=== PATIENT | male | born 1955 | race Caucasian/White ===

== ENCOUNTER 2019-04-13 15:55 | Observation (INO) | payer OTHER ==
[~2019-04-13] VITALS: Ht 170.2 cm; Wt 87.4 kg
--- NOTE | 2019-04-13 17:00 | ERD ---
ER Documentation Chief Complaint Chief Complaint c/o chest pain non radiating and uneasiness, pt. states "im having a panic HPI This is a 63-year-old male with a history of high blood pressure diabetes, and multiple underlying psychiatric issues who presents to the emergency room for evaluation of chest pain. The patient denies any exertional component to chest pain and localizes it to the center of his chest and states that it is a pressure-like sensation with no radiation. The patient denies any shortness of breath, nausea, vomiting, diaphoresis. The patient states that he thinks he is having a panic attack and does have pain similar to this with a previous panic attacks. ROS All systems reviewed and are negative except as per history of present illness. Medications Home Meds Reported Medications Tamsulosin Hcl* (Flomax*) 0.4 Mg Cap.er.24h, 0.4 MG PO DAILY, CAP 04/13/19 Clonidine Hcl* (Clonidine Hcl*) 0.1 Mg Tab, 0.1 MG PO DAILY PRN for BLOOD PRESSURE SUPPORT, TAB 04/13/19 Albuterol Sulfate* (Proair HFA*) 8.5 Gm Hfa.aer.ad, 2 PUFF INH Q4H PRN for WHEEZING AND SOB, #1 INHALER 04/13/19 [place]um[place]-3 Acid Ethyl Esters (Lovaza) 1 Gm Capsule, 2 GM PO BID, CAP 04/13/19 Nifedipine* (Nifedipine ER*) 30 Mg Tablet.sa, 30 MG PO DAILY, TAB.SA 04/13/19 Yrumth-Rnaeabpi-Clzaper* (Alphonso CACERES* 36,000) 36,000 L-114,000-180,000 Unit Capsule.dr, 1 CAP PO WITH MEALS, CAP 04/13/19 Sitagliptin* (Januvia*) 100 Mg Tablet, 100 MG PO DAILY, #30 TAB 04/13/19 Metoclopramide Hcl* (Metoclopramide Hcl*) 5 Mg Tablet, 5 MG PO Q6H PRN for NAUS EA AND OR VOMITING, TAB 04/13/19 Glipizide XL* (Glipizide XL*) 5 Mg Tabsr, 10 MG PO DAILY, TAB 04/13/19 Empagliflozin (Jardiance) 10 Mg Tablet, 10 MG PO DAILY, TAB 04/13/19 Insulin Glargine,Hum.rec.anlog (Basaglar Kwikpen U-100) 100 Unit/1 Ml Insuln.pen, 0 SC QHS, EA PT NO SURE HOW MANY UNITS 04/13/19 Dutasteride* (Avodart*) 0.5 Mg Capsule, 0.5 MG PO DAILY, CAP 04/13/19 Mirtazapine* (Mirtazapine*) 15 Mg Tablet, 15 MG PO HS, TAB 04/13/19 Fenofibrate, Micronized* (Fenofibrate*) 160 Mg Tablet, 160 MG PO DAILY, TAB 04/13/19 Omeprazole* (Omeprazole*) 40 Mg Capsule.dr, 40 MG PO DAILY, #30 CAP 04/13/19 Gabapentin* (Gabapentin*) 300 Mg Capsule, 300 MG PO BID, #60 CAP 04/13/19 Benazepril-Hydrochlorothiazide (Benazepril-Hydrochlorothiazide) 10-12.5 Mg Tablet, 1 TAB PO DAILY, #30 TAB 04/13/19 Aspirin (Low Dose Aspirin) 81 Mg Tablet.dr, 81 MG PO DAILY, #30 TAB 04/13/19 Metoprolol Succinate* (Toprol XL*) 50 Mg Tab.er.24h, 50 MG PO DAILY, #30 TAB 04/13/19 Rosuvastatin Calcium* (Crestor*) 10 Mg Tablet, 10 MG PO QHS, #30 TAB 04/13/19 Lorazepam* (Lorazepam*) 0.5 Mg Tablet, 0.5 MG PO DAILY PRN for ANXIETY, TAB 04/13/19 Allergies Allergies: Coded Allergies: No Known Allergy (Unverified , 04/13/19) PMhx/Soc Medical and Surgical Hx: pt denies Surgical Hx Hx Cardiac Disorders: Yes (htn, hld) Hx Psychiatric Problems: Yes (depression, schizo, panic attacks) Hx Miscellaneous Medical Probl: No Hx Alcohol Use: No Hx Substance Use: Yes Hx Tobacco Use: Yes Smoking Status: Current every day smoker Physical Exam Vitals Vital Signs Date Temp Pulse Resp B/P (MAP) Pulse Ox O2 O2 Flow FiO2 Time Delivery Rate 04/13/19 69 14 169/91 96 Room Air 17:54 (117) 04/13/19 99.1 87 20 148/79 99 16:09 (102) Physical Exam INITIAL VITAL SIGNS: Reviewed by me GENERAL: The patient is well developed and appropriate for usual state of health in no apparent distress HEENT: Pupils equal, round, and reactive to light. EOMI. There is no scleral icterus. NECK: C-spine is soft and supple, there is no meningismus. There is no cervical lymphadenopathy. LUNGS: Clear to auscultation bilaterally. There are no rales, wheezes or rhonchi. HEART: Regular rate and rhythm, no murmurs, clicks, rubs or gallops. ABDOMEN: Soft, non-tender, non-distended. There are bowel sounds in all four quadrants. No rebound or guarding. EXTREMITIES: There is no peripheral cyanosis or edema. No focal swelling or erythema. NEUROLOGICAL: The patient moves all four extremities with 5/5 strength. Cranial nerves II - XII are intact. Normal gait. Alert and oriented SKIN: There is no apparent rash or petechiae. HEME/LYMPHATIC: There is no evidence of excessive bruising or lymphedema. PSYCHIATRIC: The patient does has an anxious affect Result Diagram: 04/13/19 1620 04/13/19 1620 Results 24 hrs Laboratory Tests Test 04/13/19 16:20 White Blood Count 6.3 10^3/ul Red Blood Count 3.69 10^6/ul Hemoglobin 11.2 g/dl Hematocrit 33.0 % Mean Corpuscular Volume 89.4 fl Mean Corpuscular Hemoglobin 30.4 pg Mean Corpuscular Hemoglobin Concent 33.9 g/dl Red Cell Distribution Width 12.0 % Platelet Count 230 10^3/UL Mean Platelet Volume 9.5 fl Immature Granulocytes % 0.300 % Neutrophils % 70.7 % Lymphocytes % 21.0 % Monocytes % 7.5 % Eosinophils % 0.0 % Basophils % 0.5 % Nucleated Red Blood Cells % 0.0 /100WBC Immature Granulocytes # 0.020 10^3/ul Neutrophils # 4.5 10^3/ul Lymphocytes # 1.3 10^3/ul Monocytes # 0.5 10^3/ul Eosinophils # 0.0 10^3/ul Basophils # 0.0 10^3/ul Nucleated Red Blood Cells # 0.0 10^3/ul Sodium Level 130 mmol/L Potassium Level 3.9 mmol/L Chloride Level 96 mmol/L Carbon Dioxide Level 25 mmol/L Anion Gap 9 Blood Urea Nitrogen 10 mg/dl Creatinine 0.75 mg/dl Est Glomerular Filtrat Rate mL/min > 60 mL/min Glucose Level 247 mg/dl Calcium Level 9.2 mg/dl Troponin I < 0.012 ng/ml Current Medications Medications Dose Sig/Matthew Start Time Status Last (Trade) Ordered Route PRN Stop Time Admin Dose Reason Admin Lorazepam 1 mg ONCE ONCE 04/13/19 DC 04/13/19 (Ativan) PO 18:00 17:47 04/13/19 18:01 Aspirin 324 mg ONCE ONCE 04/13/19 DC 04/13/19 (Aspirin) PO 18:00 17:45 04/13/19 18:01 Ondansetron 4 mg ER BRIDGE 04/13/19 HCl (Zofran PRN IV 18:00 Inj) NAUSEA/VOMITI 04/14/19 17:59 NG 650 mg ER BRIDGE 04/13/19 Acetaminophen PRN PO 18:00 (Tylenol .MILD PAIN 04/14/19 17:59 Tab) 1-3 OR TEMP Albuterol 2 puff Q4H PRN 04/13/19 UNV (Ventolin INH WHEEZING 18:00 Hfa) AND SOB Aspirin 81 mg DAILY PO 04/14/19 UNV (Halfprin) 09:00 Clonidine 0.1 mg DAILY PRN 04/13/19 UNV (Catapres) PO BLOOD 18:00 PRESSURE SUPPORT Dutasteride 0.5 mg DAILY PO 04/14/19 UNV (Avodart) 09:00 10 mg DAILY PO 04/14/19 UNV Empaglifozin 09:00 (Jardiance) Gabapentin 300 mg BID PO 04/13/19 UNV (Neurontin) 21:00 Glipizide 10 mg DAILY PO 04/14/19 UNV (Glucotrol 09:00 Xl) Insulin 18 unit QHS SC 04/13/19 UNV Glargine 21:00 (Lantus) Lorazepam 0.5 mg DAILY PRN 04/13/19 UNV (Ativan) PO ANXIETY 18:00 5 mg Q6H PRN 04/13/19 UNV Metoclopramid PO NAUSEA 18:00 e HCl AND/OR (Reglan) VOMITING Metoprolol 50 mg DAILY PO 04/13/19 UNV Succinate 18:00 (Toprol Xl) Mirtazapine 15 mg HS PO 04/13/19 UNV (Remeron) 21:00 Nifedipine 30 mg DAILY PO 04/14/19 UNV (Procardia 09:00 Xl) Tamsulosin 0.4 mg DAILY PO 04/14/19 UNV HCl 09:00 (Flomax) 1 tab DAILY PO 04/14/19 UNV Miscellaneous 09:00 Information 160 mg DAILY PO 04/14/19 UNV Miscellaneous 09:00 Information 1 cap WITH MEALS 04/13/19 UNV Miscellaneous PO 18:00 Information 2 gm BID PO 04/13/19 UNV Miscellaneous 21:00 Information 10 mg QHS PO 04/13/19 UNV Miscellaneous 21:00 Information 100 mg DAILY PO 04/14/19 UNV Miscellaneous 09:00 Information Diagnostic 1 ea AC MEALS AND 04/13/19 UNV Test (Pha) BEDTIME XX 21:00 (Accu-Chek) Procedures/MDM EKG: Rate/Rhythm: [Normal Sinus Rhythm] QRS, ST, T-waves: [No changes consistent w/ acute ischemia] Impression: [No evidence of ischemia or arrhythmia] Chest X-ray 1V Interpreted by me: Soft Tissue: No acute abnormalities Bones: No acute abnormalities Mediastinum/Cardiac Silhouette/Lungs: [No acute abnormalities] This 63-year-old male presents to the ER for evaluation of chest pain. On my evaluation the patient did appear slightly anxious. He does state he has a history of high blood pressure. The patient was given Ativan and aspirin. On reevaluation the patient still states that he is having some chest pain. His EKG was nonischemic, first troponin is negative, chest x-ray is clear however given his age and risk factors the patient will benefit from inpatient hospitalization for serial troponins and possible cardiology consult. The patient will be admitted to [facility] physician Dr. Gray who is comfortable with her plan of care Departure Diagnosis: Primary Impression: Chest pain Condition: FLEX Kaiser DO Apr 13, 2019 17:00
[2019-04-13] MEDS ORDERED: LORA0.5T PO (17:11)
[2019-04-13] MEDS ORDERED: RSV10T PO (17:14)
[2019-04-13] MEDS ORDERED: METO-319 PO (17:14)
[2019-04-13] MEDS ORDERED: ASPI81TA52 PO (17:15)
[2019-04-13] MEDS ORDERED: OMEP40CA6 PO (17:21)
[2019-04-13] MEDS ORDERED: BENA1TAB12 PO (17:21)
[2019-04-13] MEDS ORDERED: GABA300C16 PO (17:21)
[2019-04-13] MEDS ORDERED: FENO160T13 PO (17:22)
[2019-04-13] MEDS ORDERED: MIRT15TA5 PO (17:22)
[2019-04-13] MEDS ORDERED: DUTA0.5C PO (17:23)
[2019-04-13] MEDS ORDERED: INSU100I33 SC (17:24)
[2019-04-13] MEDS ORDERED: EMPA10TA PO (17:24)
[2019-04-13] MEDS ORDERED: METO5TAB2 PO (17:25)
[2019-04-13] MEDS ORDERED: GLIP-160 PO (17:25)
[2019-04-13] MEDS ORDERED: SITA100T11 PO (17:26)
[2019-04-13] MEDS ORDERED: NIFE30TA23 PO (17:26)
[2019-04-13] MEDS ORDERED: LIPA1CAP45 PO (17:26)
[2019-04-13] MEDS ORDERED: ALBU8.5H8 INH (17:27)
[2019-04-13] MEDS ORDERED: OMEG1CAP2 PO (17:27)
[2019-04-13] MEDS ORDERED: CLON-379 PO (17:52)
[2019-04-13] MEDS ORDERED: TAMS-14 PO (17:53)
[2019-04-13] MEDS ORDERED: ONDANSETRON 4 MG INJ IV PRN (18:00)
[2019-04-13] MEDS ORDERED: ASPIRIN 81 MG TAB PO ONE (18:00)
[2019-04-13] MEDS ORDERED: ALBUTEROL HFA 8 GM INHALER INH PRN (18:00)
[2019-04-13] MEDS ORDERED: ACETAMINOPHEN 325 MG TAB PO PRN ×2 (18:00→18:30)
[2019-04-13] MEDS ORDERED: LORAZEPAM 1 MG TAB PO ONE (18:00)
[2019-04-13] MEDS ORDERED: METOCLOPRAMIDE 5 MG TAB PO PRN (18:00)
[2019-04-13] MEDS ORDERED: LORAZEPAM 0.5 MG TAB PO PRN (18:00)
[2019-04-13] MEDS ORDERED: ONDANSETRON 4 MG TAB PO PRN (18:30)
[2019-04-13] MEDS ORDERED: DEXTROSE 50% 50 ML SYRINGE IV PRN ×2 (18:30)
[2019-04-13] MEDS ORDERED: GLUCAGON 1 MG INJ IM PRN (18:30)
[2019-04-13] MEDS ORDERED: DOCUSATE SODIUM 100 MG CAP PO PRN (18:30)
[2019-04-13] MEDS ORDERED: GLUCOSE GEL 15 GRAM TUBE BUCCAL PRN (18:30)
[2019-04-13] MEDS ORDERED: GLUCOSE GEL 15 GRAM TUBE PO PRN ×2 (18:30)
[2019-04-13] MEDS ORDERED: NACL 0.9% 3 ML SYG IV SCH (18:30)
[2019-04-13 20:44] VITALS: BP 171/78; PULSE 61; RESP 22
[2019-04-13] MEDS ORDERED: MIRTAZAPINE 15 MG TAB PO SCH (21:00)
[2019-04-13] MEDS: ACCU-CHEK XX SCH (21:00)
[2019-04-13] MEDS ORDERED: ATORVASTATIN 40 MG TAB PO SCH (21:00)
[2019-04-13] MEDS ORDERED: INSULIN GLARGINE [LANTus] (100 UNITS/ML) SYG SC SCH (21:00)
[2019-04-13] MEDS ORDERED: [UNRECOGNIZED DRUG - OTHER] XX SCH (21:30)
[2019-04-13 22:00] VITALS: Ht 170.2 cm; Wt 87.4 kg
[2019-04-13] MEDS: FAMOTIDINE 20 MG TAB PO SCH (22:17)
[2019-04-13] MEDS: GABAPENTIN 300 MG CAP PO SCH (22:18)
[2019-04-13] MEDS: FISH OIL 1,000 MG CAP PO SCH (22:18)
[2019-04-13] MEDS: METOPROLOL (XL) 50 MG TAB PO SCH (22:32)
[2019-04-13] MEDS: ENOXAPARIN 40 MG/0.4 ML SYG SC SCH (22:37)
[2019-04-13] MEDS: CREON (12k-38k-60k) 1 CAP PO SCH (23:24)
[2019-04-14 00:11] VITALS: BP 146/62; PULSE 60; RESP 19
[2019-04-14 04:00] VITALS: BP 100/53; PULSE 50; RESP 19
[2019-04-14 07:13] VITALS: BP 112/62; PULSE 53; RESP 18
[2019-04-14] MEDS ORDERED: INSULIN GLARGINE [LANTus] (100 UNITS/ML) SYG SC SCH ×2 (07:52→21:00)
[2019-04-14] MEDS: ACCU-CHEK XX SCH ×2 (07:56→11:20)
[2019-04-14] MEDS: CREON (12k-38k-60k) 1 CAP PO SCH ×2 (08:09→11:50)
[2019-04-14] MEDS: GABAPENTIN 300 MG CAP PO SCH (08:10)
[2019-04-14] MEDS: FISH OIL 1,000 MG CAP PO SCH (08:10)
[2019-04-14] MEDS: FAMOTIDINE 20 MG TAB PO SCH (08:10)
[2019-04-14] MEDS: DUTASTERIDE 0.5 MG CAP PO SCH ×2 (08:10→08:30)
[2019-04-14] MEDS: METOPROLOL (XL) 50 MG TAB PO SCH (08:15)
[2019-04-14] MEDS: ENOXAPARIN 40 MG/0.4 ML SYG SC SCH (08:27)
--- NOTE | 2019-04-14 08:59 | PDOCDIS ---
Discharge Instructions CONDITION [id number] Patient Condition: [id number] Good HOME CARE INSTRUCTIONS: [id number] Diet Instructions: [id number] Activity Restrictions: [id number] No Restrictions FOLLOW UP/APPOINTMENTS Follow-up Plan pcp 1 week SAMEER MARTE MD Apr 14, 2019 08:59
[2019-04-14] MEDS ORDERED: NIFEdipine (XL) 30 MG TAB PO SCH (09:00)
[2019-04-14] MEDS ORDERED: TAMSULOSIN (SR) 0.4 MG CAP PO SCH (09:00)
[2019-04-14] MEDS ORDERED: HYDROCHLOROTHIAZIDE 12.5 MG CAP PO SCH (09:00)
[2019-04-14] MEDS ORDERED: FENOFIBRATE 145 MG TAB PO SCH (09:00)
[2019-04-14] MEDS ORDERED: BENAZEPRIL 10 MG TAB PO SCH (09:00)
[2019-04-14] MEDS ORDERED: EMPAGLIFLOZIN 10 MG TABLET PO SCH (09:00)
[2019-04-14] MEDS ORDERED: LINAGLIPTIN 5 MG TABLET PO SCH (09:00)
[2019-04-14] MEDS ORDERED: ASPIRIN (EC) 81 MG TAB PO SCH (09:00)
[2019-04-14] MEDS ORDERED: glipiZIDE (XL) 2.5 MG TAB PO SCH (09:00)
[2019-04-14] MEDS ORDERED: glipiZIDE (XL) 5 MG TAB PO SCH (09:00)
--- NOTE | 2019-04-14 11:47 | HP ---
DATE OF ADMISSION: 04/13/2019 CHIEF COMPLAINT: Chest pain. HISTORY OF PRESENT ILLNESS: A 63-year-old male with a history of hypertension, type 2 diabetes melli tus, hyperlipidemia, chronic smoking, and schizophrenia, presented to emergency room with complaint o f midsternal chest pain since the day prior to admission. The patient attributes the pain to severe anger. His symptoms lasted 2 to 3 hours. He denies shortness of breath. No nausea, vomiting or adrian phoresis. No exertional symptoms. The pain was nonradiating. The patient reports having had a christian lar type of pain in the past due to his episodes of panic attack. Initial evaluation in the emergency room was unremarkable. Serial troponins have been normal. There were no EKG changes. At the time of my visit, the patient had no complaints of chest pain or shortn ess of breath. PAST MEDICAL HISTORY: 1. Hypertension. 2. Hyperlipidemia. 3. Type 2 diabetes mellitus. 4. Schizophrenia. MEDICATIONS: 1. Flomax 0.4 mg daily. 2. Clonidine 0.1 mg daily. 3. Albuterol as needed. 4. Nifedipine 30 mg daily. 5. Januvia 100 mg daily. 6. Glipizide XL 5 mg daily. 7. Jardiance 10 mg daily. 8. Basaglar insulin daily. 9. Avodart 0.5 mg daily. 10. Mirtazapine 15 mg at bedtime. 11. Fenofibrate 160 mg daily. 12. Omeprazole 40 mg daily. 13. Gabapentin 300 mg b.i.d. 14. Benazepril hydrochlorothiazide 10/12.5 one tablet daily. 15. Aspirin 81 mg daily. 16. Toprol-XL 50 mg daily. 17. Crestor 10 mg daily. 18. Lorazepam as needed. ALLERGIES: THE PATIENT HAS NO KNOWN DRUG ALLERGIES. SOCIAL HISTORY: The patient lives at home. He suffers from depression and occasional panic attacks. He admits to smoking more than half a pack of cigarettes per day. PHYSICAL EXAMINATION: GENERAL: Well-developed, well-nourished male who is in no apparent distress. VITAL SIGNS: Stable. He is afebrile. HEENT: Extraocular muscles intact. Pupils are equal and reactive to light bilaterally. Sclerae are anicteric. Oropharynx is clear and moist. NECK: Supple, no JVD, no carotid bruits. LUNGS: Mild rhonchi. CARDIAC: Regular rate and rhythm. No murmurs, rubs or gallops. ABDOMEN: Soft, nontender, nondistended, normoactive bowel sounds. EXTREMITIES: No clubbing, cyanosis, or edema. NEUROLOGICAL: Grossly nonfocal. LABORATORY DATA: CBC was within normal limits. Basic metabolic panel was within normal limits. Hem oglobin A1c was 7.4. Serial troponins were less 0.012 x2. ASSESSMENT: 1. A 63-year-old male presenting with atypical chest pain. Despite the fact that the patient has mu ltiple cardiac risk factors, he had persistent pain for 3 hours on the day of admission. There were no associated symptoms. EKG is normal and serial troponins have been normal. 2. Hypertension. 3. Type 2 diabetes mellitus. 4. Hyperlipidemia. 5. Schizophrenia. 6. Chronic depression. 7. Benign prostatic hyperplasia. PLAN: 1. Place in tele observation. 2. Resume home medications. 3. A 2D echo. 4. Cardiology consultation was requested. Dictated By: SAMEER STRICKLAND/LARA Conf#: [id number] DID#: [id number] CC: SUZANNE PARKER MD;*EndCC*
[2019-04-14 12:02] VITALS: BP_SYST 118; BP_SYST 139; BP_DIAS 70; BP_DIAS 78; PULSE 62; PULSE 78; RESP 18
--- NOTE | 2019-04-14 12:08 | RADRPT ---
Echocardiogram Report Patient Name: ALEYDA FAIRBANKSPatient ID: [id number] : 1955 (63y 5m)Study Date: 04/14/2019 9:52:28 AM Gender: MAccession #: [id number] Tech: [facility] Location: [facility] Ref.Physician: SAMEER MARTE Height(Cm): BSA: Weight(Kg): Quality: AdequateOrder Physician: SAMEER MARTE Account #: Procedures: Echocardiographic Report: Transthoracic echocardiogram with complete 2D, M-Mode, and doppler examination. Indications: Evaluate Left Ventricular function. Measurements: 2D/M Mode Doppler Measurement Value Normal Range Measurement Value Normal Range LVIDd 2D 5.1 [ 4.2 - 5.8 ] cm AV Peak Maciej 1.4 [ 100.0 - 170.0 ] cm/sec LVIDs 2D 3.3 [ 2.5 - 4.0 ] cm AV Peak PG 8.0 [ 2.0 - 9.0 ] mmHg LVPWd 2D 1.0 [ 0.6 - 1.0 ] cm LVOT Peak Maciej 0.7 [ 70.0 - 110.0 ] cm/sec IVSd 2D 1.0 [ 0.6 - 1.0 ] cm LVOT Peak PG 2.0 [ 2.0 - 6.0 ] mmHg AoR Diam 2D 2.8 [ 2.6 - 3.4 ] cm MV E Peak Maciej 1.0 [ 60.0 - 130.0 ] cm/sec EDV 2D 123.0 [ 62.0 - 150.0 ] ml MV A Peak Maciej 0.8 [ 100.0 - 120.0 ] cm/sec ESV 2D 43.2 [ 21.0 - 61.0 ] ml MV E/A 1.3 [ 0.8 - 1.5 ] ratio EF 2D 64.9 [ 52.0 - 72.0 ] percent MV Decel Time 232 [ 104 - 258 ] msec LA Dimen 2D 4.1 [ 3.0 - 4.0 ] cm Lat E` Maciej 0.1 [ 10.0 - 15.0 ] cm/sec Lateral E/E` 13.9 [ 1.0 - 2.0 ] ratio Med E` Maciej 0.1 cm/sec MV E/A 1.3 [ 0.8 - 1.5 ] ratio TR Peak Maciej 2.3 [ 100.0 - 280.0 ] cm/sec TR Peak PG 22.0 mmHg RVSP 25.0 [ 10.0 - 36.0 ] mmHg Findings: Left Ventricle: Normal left ventricular systolic function. Normal left ventricular cavity size. Left ventricular wall thickness upper limits of normal. Ejection fraction is visually estimated at 65 %. Tissue Doppler/Mitral Doppler indices are within normal limits. Right Ventricle: Normal right ventricular size. Normal right ventricular systolic function. Left Atrium: There is mild enlargement of left atrium. Right Atrium: The right atrium is normal in size. Mitral Valve: Mild mitral leaflet calcification. Mild mitral annular calcification. Trace mitral regurgitation. Aortic Valve: No significant aortic stenosis or insufficiency. Aortic cusps appear mildly calcified. Tricuspid Valve: Normal appearance of the tricuspid valve. The estimated Peak RVSP is 25 mmHg. There is trace tricuspid regurgitation. Pericardium: Normal pericardium with no significant pericardial effusion. Aorta: Normal aortic root. IVC: Normal size and normal respiratory collapse consistent with normal right atrial pressure. Conclusions: Normal left ventricular systolic function. Normal left ventricular cavity size. Left ventricular wall thickness upper limits of normal. Normal right ventricular size. Normal right ventricular systolic function. No significant valvular stenosis or regurgitation seen. Normal pericardium with no significant pericardial effusion. Electronically Signed By: Reginald Almodovar 2019-04-14 12:08:18 PDT
[2019-04-14] MEDS ORDERED: LORAZEPAM 0.5 MG TAB PO ONE (12:30)
--- NOTE | 2019-04-14 13:22 | CONS ---
Assessment/Plan Assessment/Plan Hospital Course (Demo Recall) Chest pain Preserved left ventricular ejection fraction Hypertension Dyslipidemia Anxiety Tobacco use Patient with inconsistent history, initially telling me he has chest pain when he is anxious or nervous, then later points to his head and says the pain is here. He denies exertional chest pain or shortness of breath. Serial cardiac enzymes are negative, ECG with no significant ischemic ab normalities, echocardiogram with preserved left ventricular ejection fraction Patient with inconsistencies in history as mentioned previously, by the end of the exam, patient crying. In discussion with the nurse, he signed forms to leave AGAINST MEDICAL ADVICE prior to me coming to see him. His symptoms appear quite atypical for cardiac ischemia at the current time. Consultation Date/Type/Reason Admit Date/Time Apr 13, 2019 at 18:01 Type of Consult Cardiology Reason for Consultation Chest pain Date/Time of Note DATE: 04/14/19 TIME: 13:16 Hx of Present Illness This is a 63-year-old male with past medical history of hypertension, dyslipidemia, tobacco use who presents with multiple complaints. Initially, patient told me that when he gets nervous, or has bad thoughts, he gets symptoms of chest pain. No shortness of breath. He denies exertional chest pain or shortness of breath. He told me he had an episode yesterday where he had bad thoughts and "the nerves in my head were bothering me". This was headache and chest pain. His symptoms have resolved overnight. Today, he told me he feels anxious now and feels "the nerves in my head are talking to me and bothering me". He tells me he has -1 chest pain, when I further asked him, he points to his head telling me the pain is here. When I asked him if he has a headache, he says yes and then begins crying. 12 point review of systems was performed with all pertinent positives and negatives mentioned above and all else is negative Past Medical History Anxiety Medical History: high cholesterol, hypertension Home Meds Reported Medications Tamsulosin Hcl* (Flomax*) 0.4 Mg Cap.er.24h, 0.4 MG PO DAILY, CAP 04/13/19 Clonidine Hcl* (Clonidine Hcl*) 0.1 Mg Tab, 0.1 MG PO DAILY PRN for BLOOD PRESSURE SUPPORT, TAB 04/13/19 Albuterol Sulfate* (Proair HFA*) 8.5 Gm Hfa.aer.ad, 2 PUFF INH Q4H PRN for WHEEZING AND SOB, #1 INHALER 04/13/19 [place]-3 Acid Ethyl Esters (Lovaza) 1 Gm Capsule, 2 GM PO BID, CAP 04/13/19 Nifedipine* (Nifedipine ER*) 30 Mg Tablet.sa, 30 MG PO DAILY, TAB.SA 04/13/19 Wczncj-Wqpzkuqh-Llblwtf* (Alphonso CACERES* 36,000) 36,000 L-114,000-180,000 Unit Capsule.dr, 1 CAP PO WITH MEALS, CAP 04/13/19 Sitagliptin* (Januvia*) 100 Mg Tablet, 100 MG PO DAILY, #30 TAB 04/13/19 Metoclopramide Hcl* (Metoclopramide Hcl*) 5 Mg Tablet, 5 MG PO Q6H PRN for NAUSEA AND OR VOMITING, TAB 04/13/19 Glipizide XL* (Glipizide XL*) 5 Mg Tabsr, 10 MG PO DAILY, TAB 04/13/19 Empagliflozin (Jardiance) 10 Mg Tablet, 10 MG PO DAILY, TAB 04/13/19 Dutasteride* (Avodart*) 0.5 Mg Capsule, 0.5 MG PO DAILY, CAP 04/13/19 Mirtazapine* (Mirtazapine*) 15 Mg Tablet, 15 MG PO HS, TAB 04/13/19 Fenofibrate, Micronized* (Fenofibrate*) 160 Mg Tablet, 160 MG PO DAILY, TAB 04/13/19 Omeprazole* (Omeprazole*) 40 Mg Capsule.dr, 40 MG PO DAILY, #30 CAP 04/13/19 Gabapentin* (Gabapentin*) 300 Mg Capsule, 300 MG PO BID, #60 CAP 04/13/19 Benazepril-Hydrochlorothiazide (Benazepril-Hydrochlorothiazide) 10-12.5 Mg Tablet, 1 TAB PO DAILY, #30 TAB 04/13/19 Aspirin (Low Dose Aspirin) 81 Mg Tablet.dr, 81 MG PO DAILY, #30 TAB 04/13/19 Metoprolol Succinate* (Toprol XL*) 50 Mg Tab.er.24h, 50 MG PO DAILY, #30 TAB 04/13/19 Rosuvastatin Calcium* (Crestor*) 10 Mg Tablet, 10 MG PO QHS, #30 TAB 04/13/19 Lorazepam* (Lorazepam*) 0.5 Mg Tablet, 0.5 MG PO DAILY PRN for ANXIETY, TAB 04/13/19 Discontinued Reported Medications Insulin Glargine,Hum.rec.anlog (Basaglar Kwikpen U-100) 100 Unit/1 Ml Insuln.pen, 0 SC QHS, EA PT NO SURE HOW MANY UNITS 04/13/19 Medications Current Medications Albuterol (Ventolin Hfa) 2 puff Q4H PRN INH WHEEZING AND SOB; Start 04/13/19 at 18:00 Aspirin (Halfprin) 81 mg DAILY PO Last administered on 04/14/19at 08:10; Admin Dose 81 MG; Start 04/14/19 at 09:00 Clonidine (Catapres) 0.1 mg DAILY PRN PO ELEVATED BLOOD PRESSURE; Start 04/13/19 at 18:00 Dutasteride (Avodart) 0.5 mg DAILY PO ; Start 04/14/19 at 09:00 Empaglifozin (Jardiance) 10 mg DAILY PO Last administered on 04/14/19at 08:11; Admin Dose 10 MG; Start 04/14/19 at 09:00 Gabapentin (Neurontin) 300 mg BID PO Last administered on 04/14/19at 08:10; Admin Dose 300 MG; Start 04/13/19 at 21:00 Metoclopramide HCl (Reglan) 5 mg Q6H PRN PO NAUSEA AND/OR VOMITING; Start 04/13/19 at 18:00 Metoprolol Succinate (Toprol Xl) 50 mg DAILY PO Last administered on 04/13/19at 22:32; Admin Dose 50 MG; Start 04/13/19 at 18:00 Mirtazapine (Remeron) 15 mg HS PO Last administered on 04/13/19at 22:18; Admin Dose 15 MG; Start 04/13/19 at 21:00 Nifedipine (Procardia Xl) 30 mg DAILY PO Last administered on 04/14/19at 08:16; Admin Dose 30 MG; Start 04/14/19 at 09:00 Tamsulosin HCl (Flomax) 0.4 mg DAILY PO Last administered on 04/14/19at 08:10; A dmin Dose 0.4 MG; Start 04/14/19 at 09:00 Benazepril HCl (Lotensin) 10 mg DAILY PO Last administered on 04/14/19 08:16; Admin Dose 10 MG; Start 04/14/19 at 09:00 Fenofibrate (Tricor) 145 mg DAILY PO Last administered on 04/14/19 08:09; Admin Dose 145 MG; Start 04/14/19 at 09:00 Amylase/Lipase/ Protease (CREON (12k-38k-60k)) 3 cap WITH MEALS PO Last administered on 04/14/19 08:09; Admin Dose 3 CAP; Start 04/13/19 at 18:00 Fish Oil (Fish Oil) 2,000 mg BID PO Last administered on 04/14/19 08:10; Admin Dose 2,000 MG; Start 04/13/19 at 21:00 Atorvastatin Calcium (Lipitor) 40 mg QHS PO Last administered on 04/13/19 22:18; Admin Dose 40 MG; Start 04/13/19 at 21:00 Linagliptin (Tradjenta) 5 mg DAILY PO Last administered on 04/14/19 08:11; Admin Dose 5 MG; Start 04/14/19 at 09:00 Diagnostic Test (Pha) (Accu-Chek) 1 ea AC MEALS AND BEDTIME XX Last administered on 04/14/19 07:56; Admin Dose 1 EA; Start 04/13/19 at 21:00 IV Flush (NS 3 ml) 3 ml PER PROTOCOL IV ; Start 04/13/19 at 18:30 Ondansetron HCl (Zofran Tab) 4 mg Q6H PRN PO NAUSEA/VOMITING; Start 04/13/19 at 18:30 Acetaminophen (Tylenol Tab) 650 mg Q6H PRN PO .PAIN 1-3 OR TEMP Last administered on 04/14/19 12:39; Admin Dose 650 MG; Start 04/13/19 at 18:30 Docusate Sodium (Colace) 100 mg Q12H PRN PO .CONSTIPATION; Start 04/13/19 at 18:30 Famotidine (Pepcid) 20 mg Q12 PO Last administered on 04/14/19 08:10; Admin Dose 20 MG; Start 04/13/19 at 21:00 Enoxaparin Sodium (Lovenox) 40 mg DAILY SC Last administered on 04/14/19 08:27; Admin Dose 40 MG; Start 04/13/19 at 18:30 Miscellaneous Information 1 ea NOTE XX ; Start 04/13/19 at 18:30 Glucose (Glutose) 15 gm Q15M PRN PO DECREASED GLUCOSE; Start 04/13/19 at 18:30 Glucose (Glutose) 22.5 gm Q15M PRN PO DECREASED GLUCOSE; Start 04/13/19 at 18:30 Dextrose (D50w Syringe) 25 ml Q15M PRN IV DECREASED GLUCOSE; Start 04/13/19 at 18:30 Dextrose (D50w Syringe) 50 ml Q15M PRN IV DECREASED GLUCOSE; Start 04/13/19 at 18:30 Glucagon (Glucagen) 1 mg Q15M PRN IM DECREASED GLUCOSE; Start 04/13/19 at 18:30 Glucose (Glutose) 15 gm Q15M PRN BUCCAL DECREASED GLUCOSE; Start 04/13/19 at 18:30 Hydrochlorothiazide (Hydrochlorothiazide) 12.5 mg DAILY PO Last administered on 04/14/19at 08:16; Admin Dose 12.5 MG; Start 04/14/19 at 09:00 Glipizide (Glucotrol Xl) 10 mg DAILY PO Last administered on 04/14/19at 08:09; Admin Dose 10 MG; Start 04/14/19 at 09:00 Insulin Glargine (Lantus) 18 units QHS SC ; Start 04/14/19 at 21:00 Lorazepam (Ativan) 0.5 mg Q8H PRN PO ANXIETY; Start 04/14/19 at 18:00 Allergies: Coded Allergies: No Known Allergy (Unverified , 04/13/19) Social History Smoking Status: Current every day smoker Exam/Review of Systems Vital Signs Vitals Vital Signs Date Temp Pulse Resp B/P (MAP) Pulse Ox O2 O2 Flow FiO2 Time Delivery Rate 04/14/19 98.0 62 18 118/70 98 12:02 (86) 04/14/19 Room Air 04:00 Intake and Output 04/13/19 04/13/19 04/14/19 1515:00 23:00 07:00 IntakeIntake Total 500 ml OutputOutput Total 2300 ml 300 ml BalanceBalance -2300 ml 200 ml Exam Constitutional: alert, oriented (Initially no apparent distress, then began crying with discussion) Head: normocephalic Respiratory: clear to auscultation, normal air movement Cardiovascular: regular rate and rhythm (S1-S2 heard) Gastrointestinal: soft, non-tender, bowel sounds Extremities: other (No edema) Labs Result Diagram: 04/14/19 0430 04/14/19 0429 Results 24hrs Laboratory Tests Test 04/13/19 16:20 04/13/19 22:25 04/13/19 23:30 04/14/19 04:29 White Blood Count 6.3 Red Blood Count 3.69 L Hemoglobin 11.2 L Hematocrit 33.0 L Mean Corpuscular 89.4 Volume Mean Corpuscular 30.4 Hemoglobin Mean Corpuscular 33.9 Hemoglobin Concent Red Cell 12.0 Distribution Width Platelet Count 230 Mean Platelet Volume 9.5 Immature 0.300 Granulocytes % Neutrophils % 70.7 Lymphocytes % 21.0 Monocytes % 7.5 Eosinophils % 0.0 Basophils % 0.5 Nucleated Red Blood 0.0 Cells % Immature 0.020 Granulocytes # Neutrophils # 4.5 Lymphocytes # 1.3 Monocytes # 0.5 Eosinophils # 0.0 Basophils # 0.0 Nucleated Red Blood 0.0 Cells # Sodium Level 130 L 142 Potassium Level 3.9 4.1 Chloride Level 96 L 106 # Carbon Dioxide Level 25 27 Anion Gap 9 9 Blood Urea Nitrogen 10 9 Creatinine 0.75 0.72 Est Glomerular > 60 > 60 Filtrat Rate mL/min Glucose Level 247 H 116 # Calcium Level 9.2 10.0 Troponin I < 0.012 < 0.012 < 0.012 Creatine Kinase 102 86 Creatine Kinase 1.7 1.6 Index Creatinine Kinase MB 1.75 1.37 (Mass) Bedside Glucose 189 Hemoglobin A1c 7.4 H Test 04/14/19 04:30 04/14/19 07:53 White Blood Count 5.2 Red Blood Count 4.10 L Hemoglobin 12.4 L Hematocrit 36.7 L Mean Corpuscular 89.5 Volume Mean Corpuscular 30.2 Hemoglobin Mean Corpuscular 33.8 Hemoglobin Concent Red Cell 12.0 Distribution Width Platelet Count 265 Mean Platelet Volume 9.9 Immature 0.200 Granulocytes % Neutrophils % 47.4 Lymphocytes % 41.6 Monocytes % 9.4 Eosinophils % 0.4 Basophils % 1.0 Nucleated Red Blood 0.0 Cells % Immature 0.010 Granulocytes # Neutrophils # 2.5 Lymphocytes # 2.2 Monocytes # 0.5 Eosinophils # 0.0 Basophils # 0.1 Nucleated Red Blood 0.0 Cells # Bedside Glucose 113 Imaging Imaging Sinus rhythm, normal QRS duration, nonspecific ST abnormalities Medications Medications Current Medications Albuterol (Ventolin Hfa) 2 puff Q4H PRN INH WHEEZING AND SOB; Start 04/13/19 at 18:00 Aspirin (Halfprin) 81 mg DAILY PO Last administered on 04/14/19 08:10; Admin Dose 81 MG; Start 04/14/19 at 09:00 Clonidine (Catapres) 0.1 mg DAILY PRN PO ELEVATED BLOOD PRESSURE; Start 9 at 18:00 Dutasteride (Avodart) 0.5 mg DAILY PO ; Start 04/14/19 at 09:00 Empaglifozin (Jardiance) 10 mg DAILY PO Last administered on 04/14/19 08:11; Admin Dose 10 MG; Start 04/14/19 at 09:00 Gabapentin (Neurontin) 300 mg BID PO Last administered on 04/14/19 08:10; Admin Dose 300 MG; Start 04/13/19 at 21:00 Metoclopramide HCl (Reglan) 5 mg Q6H PRN PO NAUSEA AND/OR VOMITING; Start 04/13/19 at 18:00 Metoprolol Succinate (Toprol Xl) 50 mg DAILY PO Last administered on 04/13/19 22:32; Admin Dose 50 MG; Start 04/13/19 at 18:00 Mirtazapine (Remeron) 15 mg HS PO Last administered on 04/13/19 22:18; Admin Dose 15 MG; Start 04/13/19 at 21:00 Nifedipine (Procardia Xl) 30 mg DAILY PO Last administered on 04/14/19 08:16; Admin Dose 30 MG; Start 04/14/19 at 09:00 Tamsulosin HCl (Flomax) 0.4 mg DAILY PO Last administered on 04/14/19 08:10; Admin Dose 0.4 MG; Start 04/14/19 at 09:00 Benazepril HCl (Lotensin) 10 mg DAILY PO Last administered on 04/14/19 08:16; Admin Dose 10 MG; Start 04/14/19 at 09:00 Fenofibrate (Tricor) 145 mg DAILY PO Last administered on 04/14/19 08:09; Admin Dose 145 MG; Start 04/14/19 at 09:00 Amylase/Lipase/ Protease (CREON (12f-38k-60k)) 3 cap WITH MEALS PO Last administered on 04/14/19 08:09; Admin Dose 3 CAP; Start 04/13/19 at 18:00 Fish Oil (Fish Oil) 2,000 mg BID PO Last administered on 04/14/19 08:10; Admin Dose 2,000 MG; Start 04/13/19 at 21:00 Atorvastatin Calcium (Lipitor) 40 mg QHS PO Last administered on 04/13/19 22:18; Admin Dose 40 MG; Start 04/13/19 at 21:00 Linagliptin (Tradjenta) 5 mg DAILY PO Last administered on 04/14/19 08:11; Admin Dose 5 MG; Start 04/14/19 at 09:00 Diagnostic Test (Pha) (Accu-Chek) 1 ea AC MEALS AND BEDTIME XX Last administered on 04/14/19 07:56; Admin Dose 1 EA; Start 04/13/19 at 21:00 IV Flush (NS 3 ml) 3 ml PER PROTOCOL IV ; Start 04/13/19 at 18:30 Ondansetron HCl (Zofran Tab) 4 mg Q6H PRN PO NAUSEA/VOMITING; Start 04/13/19 at 18:30 Acetaminophen (Tylenol Tab) 650 mg Q6H PRN PO .PAIN 1-3 OR TEMP Last administered on 04/14/19 12:39; Admin Dose 650 MG; Start 04/13/19 at 18:30 Docusate Sodium (Colace) 100 mg Q12H PRN PO .CONSTIPATION; Start 04/13/19 at 18:30 Famotidine (Pepcid) 20 mg Q12 PO Last administered on 04/14/19 08:10; Admin Dose 20 MG; Start 04/13/19 at 21:00 Enoxaparin Sodium (Lovenox) 40 mg DAILY SC Last administered on 04/14/19 08:27; Admin Dose 40 MG; Start 04/13/19 at 18:30 Miscellaneous Information 1 ea NOTE XX ; Start 04/13/19 at 18:30 Glucose (Glutose) 15 gm Q15M PRN PO DECREASED GLUCOSE; Start 04/13/19 at 18:30 Glucose (Glutose) 22.5 gm Q15M PRN PO DECREASED GLUCOSE; Start 04/13/19 at 18:30 Dextrose (D50w Syringe) 25 ml Q15M PRN IV DECREASED GLUCOSE; Start 04/13/19 at 18:30 Dextrose (D50w Syringe) 50 ml Q15M PRN IV DECREASED GLUCOSE; Start 04/13/19 at 18:30 Glucagon (Glucagen) 1 mg Q15M PRN IM DECREASED GLUCOSE; Start 04/13/19 at 18:30 Glucose (Glutose) 15 gm Q15M PRN BUCCAL DECREASED GLUCOSE; Start 04/13/19 at 18:30 Hydrochlorothiazide (Hydrochlorothiazide) 12.5 mg DAILY PO Last administered on 04/14/19at 08:16; Admin Dose 12.5 MG; Start 04/14/19 at 09:00 Glipizide (Glucotrol Xl) 10 mg DAILY PO Last administered on 04/14/19at 08:09; A dmin Dose 10 MG; Start 04/14/19 at 09:00 Insulin Glargine (Lantus) 18 units QHS SC ; Start 04/14/19 at 21:00 Lorazepam (Ativan) 0.5 mg Q8H PRN PO ANXIETY; Start 04/14/19 at 18:00 Reginald Almodovar DO Apr 14, 2019 13:22
[2019-04-14] MEDS ORDERED: LORAZEPAM 0.5 MG TAB PO PRN (18:00)
--- NOTE | 2019-04-15 13:41 | DS ---
DATE OF ADMISSION: 04/13/2019 DATE OF DISCHARGE: 04/14/2019 DISCHARGE DIAGNOSES: 1. A 63-year-old male with atypical chest pain. 2. Hypertension. 3. Hyperlipidemia 4. Schizophrenia. 5. Anxiety disorder. 6. History of heavy tobacco use. PROCEDURES DURING HOSPITALIZATION: 2D echo. 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 The patient did not have an y associated symptoms. He became very angry on the day of discharge and noticed chest pain caused by his severe anxiety. Initial evaluation was unremarkable. Serial troponins were normal. There were no EKG changes. The patient was seen in consultation by Dr. Almodovar. A 2D echo showed normal LV systolic function, normal cavity size. There were no valvular abnormalities. Patient was discharged home in a stable conditi on. He was strongly advised to avoid smoking. MEDICATIONS ON DISCHARGE: 1. Albuterol inhaler. 2. Flomax 0.4 mg daily. 3. Benazepril/hydrochlorothiazide 1 tablet daily. 4. Clonidine 0.1 mg daily as needed. 5. Fenofibrate 160 mg daily. 6. Toprol-XL 50 mg daily. 7. Nifedipine 30 mg daily. 8. Crestor 10 mg at bedtime. 9. Aspirin 81 mg daily. 10. Gabapentin 300 mg b.i.d. 11. Lorazepam 0.5 mg daily as needed. 12. Mirtazapine 15 mg at bedtime. 13. Creon 1 tablet with meals. 14. Omeprazole 40 mg daily. 15. Jardiance 10 mg daily. 16. Glipizide 10 mg daily. 17. Januvia 100 mg daily. 18. Avodart 0.5 mg daily. Follow up with PCP in 1 week. Dictated By: SAMEER STRICKLAND/NTS Conf#: [id number] DID#: [id number] CC: SZUANNE PARKER MD;*EndCC*
== END 2019-04-14 13:22 | disposition home or self-care (01) ==
LOC: E/R 15:55 → TEL 18:01
PROVIDERS: ADMIT Internal Medicine; ATTEND Internal Medicine
DX: R07.89 Other chest pain (principal); I10 Essential (primary) hypertension; E78.5 Hyperlipidemia, unspecified; F20.9 Schizophrenia, unspecified; F41.9 Anxiety disorder, unspecified; F17.210 Nicotine dependence, cigarettes, uncomplicated; N40.0 Benign prostatic hyperplasia without lower urinary tract symptoms; F32.9 Major depressive disorder, single episode, unspecified; Z79.82 Long term (current) use of aspirin; Z79.84 Long term (current) use of oral hypoglycemic drugs
CPT/HCPCS: 36415; 71045; 80048; 82550; 82553; 82962; 83036; 84484; 85025; 93005; 93306; J1650; J1815; Z7500; Z7502; Z7610; G0378

== ENCOUNTER 2019-04-20 01:19 | Emergency (ER) | payer OTHER ==
[~2019-04-20] VITALS: Ht 160 cm; Wt 83.3 kg
[~2019-04-20 01:19] MED LIST: ALBU8.5H8 INH; ASPI81TA52 PO; BENA1TAB12 PO; CLON-379 PO; DUTA0.5C PO; EMPA10TA PO; FENO160T13 PO; GABA300C16 PO; GLIP-160 PO; LIPA1CAP45 PO; LORA0.5T PO; METO-319 PO; METO5TAB2 PO; MIRT15TA5 PO; NIFE30TA23 PO; OMEG1CAP2 PO; OMEP40CA6 PO; RSV10T PO; SITA100T11 PO; TAMS-14 PO
[2019-04-20 01:31] VITALS: Ht 160 cm; Wt 83.3 kg
--- NOTE | 2019-04-20 02:06 | ERD ---
ER Documentation Chief Complaint Chief Complaint CHEST PAIN & GENERALIZED MALAISE HPI 63-year-old male who presents with multiple complaints. The patient is a very limited and difficult historian. The patient is extremely anxious. He states the reason is here is that he does not feel right he is having palpitations in his chest and notes feeling short of breath. He states "I feel like my heart is feeling ". 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 The patient was admitted to be very anxious during that timeframe, well documented by admitting physician and derrick boat lever operator. Patient states that he was also in another emergency room several days ago for similar related symptoms. He was noted to have a slightly low sodium. Patient presents again today with very similar symptoms. The patient is extremely anxious and refused to be in a room with the door. Patient states that he is also being worked up and evaluated for possible pancreatic lesion and has outpatient follow-up related to this. ROS All systems reviewed and are negative except as per history of present illness. Medications Home Meds Reported Medications Tamsulosin Hcl* (Flomax*) 0.4 Mg Cap.er.24h, 0.4 MG PO DAILY, CAP 04/13/19 Clonidine Hcl* (Clonidine Hcl*) 0.1 Mg Tab, 0.1 MG PO DAILY PRN for BLOOD PRESSURE SUPPORT, TAB 04/13/19 Albuterol Sulfate* (Proair HFA*) 8.5 Gm Hfa.aer.ad, 2 PUFF INH Q4H PRN for WHEEZING AND SOB, #1 INHALER 04/13/19 [place]-3 Acid Ethyl Esters (Lovaza) 1 Gm Capsule, 2 GM PO BID, CAP 04/13/19 Nifedipine* (Nifedipine ER*) 30 Mg Tablet.sa, 30 MG PO DAILY, TAB.SA 04/13/19 Cbqnam-Ngyhlrax-Wfnpzug* (Alphonso CACERES* 36,000) 36,000 L-114,000-180,000 Unit Capsule.dr, 1 CAP PO WITH MEALS, CAP 04/13/19 Sitagliptin* (Januvia*) 100 Mg Tablet, 100 MG PO DAILY, #30 TAB 04/13/19 Metoclopramide Hcl* (Metoclopramide Hcl*) 5 Mg Tablet, 5 MG PO Q6H PRN for NAUSEA AND OR VOMITING, TAB 04/13/19 Glipizide XL* (Glipizide XL*) 5 Mg Tabsr, 10 MG PO DAILY, TAB 04/13/19 Empagliflozin (Jardiance) 10 Mg Tablet, 10 MG PO DAILY, TAB 04/13/19 Dutasteride* (Avodart*) 0.5 Mg Capsule, 0.5 MG PO DAILY, CAP 04/13/19 Mirtazapine* (Mirtazapine*) 15 Mg Tablet, 15 MG PO HS, TAB 04/13/19 Fenofibrate, Micronized* (Fenofibrate*) 160 Mg Tablet, 160 MG PO DAILY, TAB 04/13/19 Omeprazole* (Omeprazole*) 40 Mg Capsule.dr, 40 MG PO DAILY, #30 CAP 04/13/19 Gabapentin* (Gabapentin*) 300 Mg Capsule, 300 MG PO BID, #60 CAP 04/13/19 Benazepril-Hydrochlorothiazide (Benazepril-Hydrochlorothiazide) 10-12.5 Mg Tablet, 1 TAB PO DAILY, #30 TAB 04/13/19 Aspirin (Low Dose Aspirin) 81 Mg Tablet.dr, 81 MG PO DAILY, #30 TAB 04/13/19 Metoprolol Succinate* (Toprol XL*) 50 Mg Tab.er.24h, 50 MG PO DAILY, #30 TAB 04/13/19 Rosuvastatin Calcium* (Crestor*) 10 Mg Tablet, 10 MG PO QHS, #30 TAB 04/13/19 Lorazepam* (Lorazepam*) 0.5 Mg Tablet, 0.5 MG PO DAILY PRN for ANXIETY, TAB 04/13/19 Discontinued Reported Medications Insulin Glargine,Hum.rec.anlog (Basaglar Kwikpen U-100) 100 Unit/1 Ml Insuln.pen, 0 SC QHS, EA PT NO SURE HOW MANY UNITS 04/13/19 Allergies Allergies: Coded Allergies: No Known Allergy (Unverified , 04/13/19) PMhx/Soc History of Surgery: No Anesthesia Reaction: No Hx Neurological Disorder: No Hx Respiratory Disorders: No Hx Cardiac Disorders: No Hx Psychiatric Problems: No Hx Miscellaneous Medical Probl: No Hx Alcohol Use: No Hx Substance Use: No Hx Tobacco Use: No FmHx Family History: diabetes; No coronary disease Physical Exam Vitals Vital Signs Date Temp Pulse Resp B/P (MAP) Pulse Ox O2 O2 Flow FiO2 Time Delivery Rate 04/20/19 98.0 64 15 164/84 98 Room Air 01:55 (110) 04/20/19 98.1 76 24 166/74 99 01:31 (104) Physical Exam General: Well developed, well nourished, no acute distress Head: Normocephalic, atraumatic. Eyes: Pupils equally reactive, EOM intact ENT: Moist mucous membranes Neck: Supple, no lymphadenopathy Respiratory: Lungs clear bilaterally, no distress Cardiovascular: RRR, no murmurs, rubs, or gallops Abdominal: Soft, non-tender, non-distended, no peritoneal signs : Deferred MSK: No edema, no unilateral swelling, 5/5 strength Neurologic: Alert and oriented, moving all extremities, normal speech, no focal weakness, no cerebellar signs Skin: No rash Psych: Extremely anxious Result Diagram: 04/20/1921004/20/19210 Results 24 hrs Laboratory Tests Test 04/20/19 02:11 White Blood Count 6.0 10^3/ul Red Blood Count 3.90 10^6/ul Hemoglobin 11.8 g/dl Hematocrit 34.4 % Mean Corpuscular Volume 88.2 fl Mean Corpuscular Hemoglobin 30.3 pg Mean Corpuscular Hemoglobin Concent 34.3 g/dl Red Cell Distribution Width 12.0 % Platelet Count 203 10^3/UL Mean Platelet Volume 9.7 fl Immature Granulocytes % 0.200 % Neutrophils % 57.2 % Lymphocytes % 30.1 % Monocytes % 11.8 % Eosinophils % 0.2 % Basophils % 0.5 % Nucleated Red Blood Cells % 0.0 /100WBC Immature Granulocytes # 0.010 10^3/ul Neutrophils # 3.5 10^3/ul Lymphocytes # 1.8 10^3/ul Monocytes # 0.7 10^3/ul Eosinophils # 0.0 10^3/ul Basophils # 0.0 10^3/ul Nucleated Red Blood Cells # 0.0 10^3/ul Sodium Level 134 mmol/L Potassium Level 3.9 mmol/L Chloride Level 95 mmol/L Carbon Dioxide Level 29 mmol/L Anion Gap 10 Blood Urea Nitrogen 11 mg/dl Creatinine 0.79 mg/dl Est Glomerular Filtrat Rate mL/min > 60 mL/min Glucose Level 187 mg/dl Calcium Level 9.4 mg/dl Total Bilirubin 0.3 mg/dl Direct Bilirubin 0.00 mg/dl Indirect Bilirubin 0.3 mg/dl Aspartate Amino Transf (AST/SGOT) 25 IU/L Alanine Aminotransferase (ALT/SGPT) 28 IU/L Alkaline Phosphatase 26 IU/L Troponin I < 0.012 ng/ml Total Protein 6.9 g/dl Albumin 4.1 g/dl Globulin 2.80 g/dl Albumin/Globulin Ratio 1.46 Lipase 70 U/L Procedures/MDM EKG, MONITORS, & DIAGNOSTIC IMAGING: EKG: I reviewed and interpreted a 12-lead EKG. Rhythm: Normal sinus rhythm ST Changes: No contiguous ST segment elevations T waves: No contiguous T wave inversions Impression: No evidence of acute cardiac ischemia LAB INTERPRETATION: I reviewed the laboratory testing and it shows no evidence of acute process MEDICAL DECISION MAKING: The patient's presentation seems to be very consistent with anxiety related issues. The patient is describing chest pain and does have risk factors but has recent hospital stay with serial enzymes that are negative, normal echocardiogram, cardiology consultation. His symptoms certainly do not seem to fit with acute coronary syndrome. Again today do not believe this is consistent with acute coronary syndrome. The patient is a very clear anxious trigger. No signs or symptoms concerning for dissection or pneumothorax. The patient will benefit from EKG and troponin given his age and comorbidities but I do not believe serial enzymes or inpatient hospitalization is necessary. The patient has had thorough work-up. He was recently seen in outside hospital and had reported negative enzymes at that time. Anxiety seems to be a strong component of his presentation today. ER COURSE: * Troponin negative. Patient symptoms improving with time, reassurance. Patient can be safely discharged given work-up as described above CONSULTATION: None DISPOSITION PLAN: The patient does not have an identifiable emergent medical condition that warrants inpatient hospitalization at this time. The patient is deemed safe for discharge with outpatient follow-up. We discussed follow up with the patient's primary care doctor within 24 to 48 hours as needed. We also discussed return to the emergency room for worsening symptoms or worsening condition. Outpatient referral: None required Discharge Medications: None required Departure Diagnosis: Primary Impression: Anxiety reaction Additional Impression: Palpitations Condition: Stable DAVIN CHAPMAN MD Apr 20, 2019 02:06
[2019-04-20] MEDS ORDERED: LORAZEPAM 1 MG TAB PO ONE (04:00)
[2019-04-20 04:34] VITALS: BP 128/64; PULSE 63; RESP 15
== END 2019-04-20 04:34 | disposition home or self-care (01) ==
LOC: E/R 01:19
DX: F41.1 Generalized anxiety disorder (principal); R00.2 Palpitations; E11.9 Type 2 diabetes mellitus without complications; I10 Essential (primary) hypertension; Z79.4 Long term (current) use of insulin; Z87.891 Personal history of nicotine dependence; Z79.82 Long term (current) use of aspirin
CPT/HCPCS: 80053; 83690; 84484; 85025; Z7610; 36415; 93005

== ENCOUNTER 2019-04-24 15:48 | Emergency (ER) | payer OTHER ==
[~2019-04-24] VITALS: Ht 162.6 cm; Wt 89.0 kg
[2019-04-24 15:52] VITALS: Ht 162.6 cm; Wt 89.0 kg
[2019-04-24] MEDS ORDERED: SOD CHLORIDE 0.9% 1,000 ML IV STA (16:35)
[2019-04-24] MEDS ORDERED: ONDANSETRON (ODT) 4 MG TAB ODT STA (16:35)
[2019-04-24 16:49] VITALS: BP 102/53; PULSE 77; RESP 18
--- NOTE | 2019-04-24 17:24 | ERD ---
ER Documentation Chief Complaint Chief Complaint dizziness , nausea,cp, hx schizoprenia HPI 63-year-old male history of hypertension presenting with weakness today. Patient was recently discharged from after cardiac work-up which was negative. Patient states he feels weak with no focality today. No nausea or vomiting, no chest pain or shortness of breath, no infectious symptoms and no fever. Has been compliant with his medications. ROS All systems reviewed and are negative except as per history of present illness. Medications Home Meds Reported Medications Tamsulosin Hcl* (Flomax*) 0.4 Mg Cap.er.24h, 0.4 MG PO DAILY, CAP 04/13/19 Clonidine Hcl* (Clonidine Hcl*) 0.1 Mg Tab, 0.1 MG PO DAILY PRN for BLOOD PRESSURE SUPPORT, TAB 04/13/19 Albuterol Sulfate* (Proair HFA*) 8.5 Gm Hfa.aer.ad, 2 PUFF INH Q4H PRN for WHEEZING AND SOB, #1 INHALER 04/13/19 [place]-3 Acid Ethyl Esters (Lovaza) 1 Gm Capsule, 2 GM PO BID, CAP 04/13/19 Nifedipine* (Nifedipine ER*) 30 Mg Tablet.sa, 30 MG PO DAILY, TAB.SA 04/13/19 Tgaxxo-Rnlqffud-Lybqshr* (Alphonso CACERES* 36,000) 36,000 L-114,000-180,000 Unit Capsule., 1 CAP PO WITH MEALS, CAP 04/13/19 Sitagliptin* (Januvia*) 100 Mg Tablet, 100 MG PO DAILY, #30 TAB 04/13/19 Metoclopramide Hcl* (Metoclopramide Hcl*) 5 Mg Tablet, 5 MG PO Q6H PRN for NAUSEA AND OR VOMITING, TAB 04/13/19 Glipizide XL* (Glipizide XL*) 5 Mg Tabsr, 10 MG PO DAILY, TAB 04/13/19 Empagliflozin (Jardiance) 10 Mg Tablet, 10 MG PO DAILY, TAB 04/13/19 Dutasteride* (Avodart*) 0.5 Mg Capsule, 0.5 MG PO DAILY, CAP 04/13/19 Mirtazapine* (Mirtazapine*) 15 Mg Tablet, 15 MG PO HS, TAB 04/13/19 Fenofibrate, Micronized* (Fenofibrate*) 160 Mg Tablet, 160 MG PO DAILY, TAB 04/13/19 Omeprazole* (Omeprazole*) 40 Mg Capsule.dr, 40 MG PO DAILY, #30 CAP 04/13/19 Gabapentin* (Gabapentin*) 300 Mg Capsule, 300 MG PO BID, #60 CAP 04/13/19 Benazepril-Hydrochlorothiazide (Benazepril-Hydrochlorothiazide) 10-12.5 Mg Tablet, 1 TAB PO DAILY, #30 TAB 04/13/19 Aspirin (Low Dose Aspirin) 81 Mg Tablet.dr, 81 MG PO DAILY, #30 TAB 04/13/19 Metoprolol Succinate* (Toprol XL*) 50 Mg Tab.er.24h, 50 MG PO DAILY, #30 TAB 04/13/19 Rosuvastatin Calcium* (Crestor*) 10 Mg Tablet, 10 MG PO QHS, #30 TAB 04/13/19 Lorazepam* (Lorazepam*) 0.5 Mg Tablet, 0.5 MG PO DAILY PRN for ANXIETY, TAB 04/13/19 Allergies Allergies: Coded Allergies: No Known Allergy (Unverified , 04/24/19) PMhx/Soc History of Surgery: No Anesthesia Reaction: No Hx Neurological Disorder: No Hx Respiratory Disorders: No Hx Cardiac Disorders: Yes (HTN, High Cholesterol) Hx Psychiatric Problems: Yes (Schizophrenia, Paranoia, Panic attack, Depressio n) Hx Miscellaneous Medical Probl: No Hx Alcohol Use: Yes (Former) Hx Substance Use: No Hx Tobacco Use: Yes Smoking Status: Current some day smoker Physical Exam Vitals Vital Signs Date Temp Pulse Resp B/P (MAP) Pulse Ox O2 O2 Flow FiO2 Time Delivery Rate 04/24/19 99.2 83 18 100/53 99 15:52 (69) Physical Exam Const: No acute distress Head: Atraumatic Eyes: Normal Conjunctiva ENT: Normal External Ears, Nose and Mouth. Neck: Full range of motion. No meningismus. Resp: Clear to auscultation bilaterally Cardio: Regular rate and rhythm, no murmurs Abd: Soft, non tender, non distended. Normal bowel sounds Skin: No petechiae or rashes Back: No midline or flank tenderness Ext: No cyanosis, or edema Neuro Exam Mental status: oriented, alert, lucid, cooperative, appropriate Cranial nerves: CN 2-12 intact Motor: 5+ UE and LE, flexors and extensors symmetric Sensation: grossly intact to find touch UE and LE symmetrically Cerebellar: normal FTN bilaterally. No tremor noted Gait: normal gait Tone: normal bulk and tone in upper and lower extremities. No atrophy noted. Psych: Normal Mood and Affect Result Diagram: 04/24/19 1649 04/24/19 1649 Results 24 hrs Laboratory Tests Test 04/24/19 16:49 White Blood Count 6.3 10^3/ul Red Blood Count 3.72 10^6/ul Hemoglobin 11.4 g/dl Hematocrit 33.3 % Mean Corpuscular Volume 89.5 fl Mean Corpuscular Hemoglobin 30.6 pg Mean Corpuscular Hemoglobin Concent 34.2 g/dl Red Cell Distribution Width 12.1 % Platelet Count 215 10^3/UL Mean Platelet Volume 10.0 fl Immature Granulocytes % 0.300 % Neutrophils % 71.2 % Lymphocytes % 18.7 % Monocytes % 9.3 % Eosinophils % 0.0 % Basophils % 0.5 % Nucleated Red Blood Cells % 0.0 /100WBC Immature Granulocytes # 0.020 10^3/ul Neutrophils # 4.5 10^3/ul Lymphocytes # 1.2 10^3/ul Monocytes # 0.6 10^3/ul Eosinophils # 0.0 10^3/ul Basophils # 0.0 10^3/ul Nucleated Red Blood Cells # 0.0 10^3/ul Sodium Level 130 mmol/L Potassium Level 4.6 mmol/L Chloride Level 96 mmol/L Carbon Dioxide Level 25 mmol/L Anion Gap 9 Blood Urea Nitrogen 10 mg/dl Creatinine 0.85 mg/dl Est Glomerular Filtrat Rate mL/min > 60 mL/min Glucose Level 263 mg/dl Calcium Level 8.8 mg/dl Troponin I < 0.012 ng/ml Current Medications Medications Dose Sig/Matthew Start Time Status Last (Trade) Ordered Route PRN Stop Time Admin Dose Reason Admin Sodium 1,000 ml @ Q1H STAT 04/24/19 DC 04/24/19 Chloride 1,000 mls/hr IV 16:35 04/24/19 16:35 17:34 Ondansetron 4 mg ONCE STAT 04/24/19 DC 04/24/19 HCl (Zofran ODT 16:35 04/24/19 16:35 Odt) 16:36 Procedures/MDM ECG Time: 1557 Ventricular Rate: 78 Rhythm: normal sinus rhythm. ST Segments: without evidence of depressions or elevations Intervals: without evidence of AV block, new BBB, long QT, [place] No evidence of delta wave. Chest X-ray 1V Interpreted by me: Soft Tissue: No acute abnormalities Bones: No acute abnormalities Mediastinum/Cardiac Silhouette/Lungs: No acute abnormalities Impression: Normal Chest X-Ray Patient presenting with weakness. I evaluated vital signs, physical exam, history and labs. Differentially included but not was limited too CVA, ACS, arrythmia, metabolic derangement, infection. Patient was observed and treated with IV fluids. At this time it is believed the weakness is from dehydration At this time shared decision making was had and all parties agree on going home with strict return precautions. Departure Diagnosis: Primary Impression: Weakness Condition: Stable NATACHA DENIS MD Apr 24, 2019 17:24
== END 2019-04-24 19:39 | disposition home or self-care (01) ==
LOC: E/R 15:48
DX: R53.1 Weakness (principal); I10 Essential (primary) hypertension; F17.210 Nicotine dependence, cigarettes, uncomplicated; E11.9 Type 2 diabetes mellitus without complications; Z79.82 Long term (current) use of aspirin; Z79.84 Long term (current) use of oral hypoglycemic drugs
CPT/HCPCS: 36415; 71045; 80048; 84484; 85025; 93005; J7030; Z7502; Z7610